=== PATIENT | female | born 1985 | race Caucasian/White ===

== ENCOUNTER 2019-06-06 17:46 | Emergency (ER) | payer OTHER, SELFPAY ==
[2019-06-06] MEDS ORDERED: ONDANSETRON 4 MG/2 ML VIAL ONE (19:45)
[2019-06-06] MEDS ORDERED: MORPHINE 4 MG/ML SYR ONE (19:45)
[2019-06-06 19:46] LABS: Basophils % 0.7 % (0-1.3); Hematocrit 38.1 % (36.0-45.0); Lymphocytes % 32.3 % (15.3-44.8); MPV 7.9 fL (7.6-11.3)
[2019-06-06 19:55] LABS: Albumin 4.1 g/dL (3.4-5.0); Bilirubin Direct 0.1 mg/dL (0-0.2); Bilirubin Total 0.8 mg/dL (0.2-1.0); Potassium 3.2 mmol/L (3.5-5.1); Protein, Total 7.9 g/dL (6.4-8.2)
[2019-06-06 19:58] LABS: Urine Blood 3+ (NEG); Urine Glucose NEGATIVE (NEG); Urine Protein NEGATIVE (NEG); Urine pH 5.5 (5.0-7.0)
--- NOTE | 2019-06-06 20:13 | RAD REPORT ---
EXAM DESCRIPTION: US - Abdomen Exam Limited - 06/06/2019 7:55 pm CLINICAL HISTORY: ABD PAIN COMPARISON: Renal Ultrasound-Complete dated 02/16/2019 FINDINGS: No mobile gallstones identified and no sludge seen. There are two 4 mm sized echogenic foc i adherent to the gallbladder wall. These are nonshadowing. This could be polyps or a nonshadowing ga llstones. There is no wall thickening or pericholecystic fluid. No common duct stone or biliary tree dilatation identified. IMPRESSION: Two 4 millimeter sized echogenic foci in the gallbladder either polyps or nonshadowing a dherent gallstones. No other gallbladder or biliary tree finding.
--- NOTE | 2019-06-06 20:23 | ER ---
Nurse's Notes [facility] Name: Bonnie River Age: 34 yrs Sex: Female : 1985 Arrival Date: 06/06/2019 Time: 17:53 Bed 27 Private MD: Diagnosis: Epigastric pain;Urinary tract infection, site not specified Presentation: 06/05 18:12 Chief complaint: Patient states: R upper abdominal pain since a few weeks ago but worse ca1 the past few days. Reports nausea and vomiting. Denies diarrhea and fever. Reports history of gallstones. Coronavirus screen: The patient has NOT traveled to [place] in the past 14 days. The patient has NOT had contact with known and/or suspected case of Coronavirus. Ebola Screen: Patient negative for fever greater than or equal to 101.5 degrees Fahrenheit, and additional compatible Ebola Virus Disease symptoms Patient denies exposure to infectious person. Patient denies travel to an Ebola-affected area in the 21 days before illness onset. No symptoms or risks identified at this time. Initial Sepsis Screen: Does the patient meet any 2 criteria? No. Patient's initial sepsis screen is negative. Does the patient have a suspected source of infection? No. Patient's initial sepsis screen is negative. Risk Assessment: Do you want to hurt yourself or someone else? Patient reports no desire to harm self or others. 18:12 Method Of Arrival: Ambulatory ca1 18:12 Acuity: MARK 3 ca1 18:12 Onset of symptoms was June 06, 2019. ca1 Triage Assessment: 19:46 General: Appears uncomfortable, Behavior is calm, cooperative. 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 - Social history:: Smoking status: Patient denies any tobacco usage or history of. Screenin:45 Abuse screen: Denies threats or abuse. Denies injuries from another. Nutritional ls4 screening: No deficits noted. Tuberculosis screening: No symptoms or risk factors identified. Fall Risk None identified. Assessment: 19:55 General: Appears uncomfortable. Pain: Complains of pain in right upper quadrant and ls4 right lower quadrant Pain currently is 5 out of 10 on a pain scale. Quality of pain is described as aching, crampy, worse after eating. Neuro: No deficits noted. Cardiovascular: No deficits noted. Respiratory: No deficits noted. GI: Bowel sounds present X 4 quads. Abd is soft X 4 quads Abdomen is tender to palpation in right upper quadrant. : No deficits noted. EENT: No deficits noted. Derm: No deficits noted. Musculoskeletal: No deficits noted. 19:58 Reassessment: PT REFUSED PAIN MEDICATION. STATES THAT THE PAIN IS ONLY SEVERE WHEN SHE ls4 EATS AND SHE DID NOT EAT TODAY. PT STATES SHE CAN TOLERATE THE PAIN FOR NOW. 20:18 Reassessment: Patient appears in no apparent distress at this time. Patient and/or ls4 family updated on plan of care and expected duration. Pain level reassessed. Vital Signs: 18:12 BP 122 / 90; Pulse 80; Resp 16 S; Temp 98.5(O); Pulse Ox 99% on R/A; Weight 68.04 kg ca1 (R); Height 5 ft. 7 in. (170.18 cm) (R); 20:31 BP 116 / 79; Pulse 78; Resp 14; Temp 98.5; Pulse Ox 99% on R/A; Pain 3/10; ls4 18:12 Body Mass Index 23.49 (68.04 kg, 170.18 cm) ca1 ED Course: 17:53 Patient arrived in ED. mr 18:14 Triage completed. ca1 18:16 Arm band placed on right wrist. ca1 18:55 Jose Merchant PA is PHCP. [facility] 18:55 Francis Brooks MD is Attending Physician. [facility] 19:30 Initial lab(s) drawn, by il, sent to lab. Urine collected: clean catch specimen. lt1 Inserted saline lock: 20 gauge in right antecubital area, using aseptic technique. 19:36 Apryl Martinez, RN is Primary Nurse. ls4 19:45 Patient has correct armband on for positive identification. Bed in low position. Call ls4 light in reach. Side rails up X 1. Pulse ox on. NIBP on. Diet: Patient is NPO. 19:45 No provider procedures requiring assistance completed. ls4 19:51 US Abdomen Limited Sent. ls4 19:55 US Abdomen Limited In Process Unspecified. EDMS 20:21 Berna Saleh MD is Referral Physician. m 20:35 IV discontinued, intact, bleeding controlled, No redness/swelling at site. Pressure ls4 dressing applied. Administered Medications: 20:00 Not Given (Patient Refused): morphine 4 mg IVP once; RASS on ADMIN: Combtv4, Very ls4 Agttd3, Agttd2, Rstlss1, AlertClm0, Drwsy-1, Lt Sdtn-2, Mod Sdtn-3, Dp Sdtn-4, UnArsble-5 20:00 Not Given (Patient Refused): Zofran (Ondansetron) 4 mg IVP once; over 2 minutes ls4 Outcome: 20:21 Discharge ordered by . jmm 20:34 Discharged to home ambulatory, with family. ls4 20:34 Condition: good 20:34 Discharge instructions given to patient, family, Instructed on discharge instructions, follow up and referral plans. medication usage, Demonstrated understanding of instructions, follow-up care, medications, Prescriptions given X 3. 20:42 Patient left the ED. ls4 Signatures: Dispatcher [employer] EDMS Jose Merchant PA PA jmm Rivera, Mary mr Apryl Martinez, RN RN ls4 Monica Muller RN RN Angela Fernandes lt1 Corrections: (The following items were deleted from the chart) 19:58 19:47 Zofran (Ondansetron) 4 mg IVP in right antecubital ls4 ls4 19:58 19:51 morphine 4 mg IVP in right antecubital ls4 ls4
--- NOTE | 2019-06-06 20:23 | EDPHYS ---
Physician Documentation [facility] Name: Bonnie River Age: 34 yrs Sex: Female : 1985 Arrival Date: 06/06/2019 Time: 17:53 Bed 27 Private MD: ED Physician Francis Brooks HPI: 06/05 20:18 This 34 yrs old Female presents to ER via Ambulatory with complaints of jmm Abdominal Pain. 20:18 The patient presents with abdominal pain in the epigastric area. Onset: The jmm symptoms/episode began/occurred gradually, 3 week(s) ago. The symptoms do not radiate. Associated signs and symptoms: Pertinent negatives: diarrhea, vomiting. The symptoms are described as achy. Modifying factors: The symptoms are alleviated by nothing, the symptoms are aggravated by nothing. The patient has not experienced similar symptoms in the past. 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 - Social history:: Smoking status: Patient denies any tobacco usage or history of. ROS: 20:18 Constitutional: Negative for fever, chills, and weight loss, Cardiovascular: Negative jmm for chest pain, palpitations, and edema, Respiratory: Negative for shortness of breath, cough, wheezing, and pleuritic chest pain. 20:18 Abdomen/GI: Positive for abdominal pain. 20:18 All other systems are negative. Exam: 20:18 Constitutional: This is a well developed, well nourished patient who is awake, alert, jmm and in no acute distress. Head/Face: atraumatic. Eyes: EOMI, no conjunctival erythema appreciated ENT: Moist Mucus Membranes Neck: Trachea midline, Supple Chest/axilla: Normal chest wall appearance and motion. Cardiovascular: Regular rate and rhythm. No edema appreciated Respiratory: Normal respirations, no respiratory distress appreciated 20:18 Back: Normal ROM Skin: General appearance color normal MS/ Extremity: Moves all extremities, no obvious deformities appreciated, no edema noted to the lower extremities Neuro: Awake and alert, normal gait Psych: Behavior is normal, Mood is normal, Patient is cooperative and pleasant 20:18 Abdomen/GI: Inspection: abdomen appears normal, Bowel sounds: normal, Palpation: soft, mild abdominal tenderness, in the right upper quadrant. Vital Signs: 18:12 BP 122 / 90; Pulse 80; Resp 16 S; Temp 98.5(O); Pulse Ox 99% on R/A; Weight 68.04 kg ca1 (R); Height 5 ft. 7 in. (170.18 cm) (R); 20:31 BP 116 / 79; Pulse 78; Resp 14; Temp 98.5; Pulse Ox 99% on R/A; Pain 3/10; ls4 18:12 Body Mass Index 23.49 (68.04 kg, 170.18 cm) ca1 MDM: 19:13 Patient medically screened. [facility] 20:19 Data reviewed: vital signs, nurses notes. Counseling: I had a detailed discussion with génesis the patient and/or guardian regarding: the historical points, exam findings, and any diagnostic results supporting the discharge/admit diagnosis, lab results, radiology results, the need for outpatient follow up, to return to the emergency department if symptoms worsen or persist or if there are any questions or concerns that arise at home. ED course: Patient is alert and non toxic in appearance in the ED. Decreased pain in the ED. Patient is advised to follow up with GI for further evaluation. patient understood and agrees with the plan of care. . 03 19:14 Order name: Basic Metabolic Panel; Complete Time: 20:02 [facility] 06/05 19:14 Order name: CBC with Diff; Complete Time: 20: [facility] 06/05 19:14 Order name: Creatinine for Radiology; Complete Time: 20:02 [facility] 06/05 19:14 Order name: Hepatic Function; Complete Time: 20:02 [facility] 06/05 19:14 Order name: Lipase; Complete Time: 20:02 [facility] 06/05 19:20 Order name: Urine Dipstick--Ancillary (enter results); Complete Time: 20:02 mw2 06/05 19:14 Order name: IV Saline Lock; Complete Time: 19:31 [facility] 06/05 19:14 Order name: Labs collected and sent; Complete Time: 19:31 [facility] 06/05 19:14 Order name: US Abdomen Limited; Complete Time: 20:16 [facility] 06/05 19:14 Order name: Urine Dipstick-Ancillary (obtain specimen); Complete Time: 19:31 [facility] 06/05 19:14 Order name: Urine Test (obtain specimen); Complete Time: 19:31 [facility] 06/05 19:20 Order name: Urine --Ancillary (enter results); Complete Time: 20:02 mw2 Administered Medications: 20:00 Not Given (Patient Refused): morphine 4 mg IVP once; RASS on ADMIN: Combtv4, Very ls4 Agttd3, Agttd2, Rstlss1, AlertClm0, Drwsy-1, Lt Sdtn-2, Mod Sdtn-3, Dp Sdtn-4, UnArsble-5 20:00 Not Given (Patient Refused): Zofran (Ondansetron) 4 mg IVP once; over 2 minutes ls4 Disposition: 06/06 07:47 Co-signature as Attending Physician, Francis Brooks MD I agree with the assessment and 4 plan of care. Disposition: 06/06/19 20:21 Discharged to Home. Impression: Epigastric pain, Urinary tract infection, site not specified. - Condition is Stable. - Discharge Instructions: Abdominal Pain, Adult, Urinary Tract Infection, Adult. - Prescriptions for Bentyl 20 mg Oral Tablet - take 1 tablet by ORAL route every 6 hours As needed; 20 tablet. Cephalexin 500 mg Oral Capsule - take 1 capsule by ORAL route every 12 hours for 10 days; 20 capsule. Pepcid 20 mg Oral Tablet - take 1 tablet by ORAL route every 12 hours for 10 days; 20 tablet. - Medication Reconciliation Form, Thank You Letter, Antibiotic Education, Prescription Opioid Use form. - Follow up: Berna Saleh MD; When: 2 - 3 days; Reason: Recheck today's complaints, Continuance of care, Re-evaluation by your physician. Signatures: Dispatcher [employer] EDMS Jose Merchant PA PA jmm Wadley, Terrence, MD MD tw4 Apryl Martinez RN RN ls4 Monica Muller RN RN ca1 Corrections: (The following items were deleted from the chart) 06/05 20:42 20:21 06/06/2019 20:21 Discharged to Home. Impression: Epigastric pain; Urinary tract ls4 infection, site not specified. Condition is Stable. Forms are Medication Reconciliation Form, Thank You Letter, Antibiotic Education, Prescription Opioid Use. Follow up: Berna Saleh; When: 2 - 3 days; Reason: Recheck today's complaints, Continuance of care, Re-evaluation by your physician. génesis
[2019-06-06 21:48] VITALS: TEMP 98.5; O2SAT 99
[2019-06-06 21:50] VITALS: BP 116/79
== END 2019-06-06 20:42 | disposition home or self-care (01) ==
LOC: ER 17:46
DX: R10.13 Epigastric pain (principal); N39.0 Urinary tract infection, site not specified; F32.9 Major depressive disorder, single episode, unspecified
CPT/HCPCS: 85025; 80048; 36415; 81025; 80076; 81003; 83690; 76705; 99284; J2405